=== PATIENT | male | born 1940 | race Caucasian/White ===

== ENCOUNTER → 2019-12-29 | Outpatient (CLI) | payer MEDICARE | LOC: M LABSMTC 11:15 | PROVIDERS: ATTEND Orthopaedic Surgery | DX: Z11.59 Encounter for screening for other viral diseases (principal); Z03.818 Encounter for observation for suspected exposure to other biological agents ruled out ==

== ENCOUNTER → 2024-05-24 | Outpatient (REF) | payer MEDICARE ==
[2024-05-24 18:07] LABS: APPEARANCE, URINE TURBID (CLEAR); BACTERIA, URINE AUTO 1+ (NEGATIVE); BILIRUBIN, URINE AUTO NEGATIVE (NEGATIVE); BLOOD, URINE BLOOD 3+ (NEGATIVE); COLOR, URINE AMBER (YELLOW); GLUCOSE, URINE (UA) AUTO NEGATIVE (NEGATIVE); KETONE, URINE AUTO NEGATIVE (NEGATIVE); LEUKOCYTE ESTERASE, URINE AUTO 3+ (NEGATIVE); MUCUS, URINE SMALL (NEGATIVE); NITRITE, URINE AUTO NEGATIVE (NEGATIVE); PROTEIN, URINE AUTO 2+ mg/dL (NEGATIVE); RBC, URINE AUTO TNTC /HPF (0-3); SPECIFIC GRAVITY URINE AUTO 1.006 (1.002-1.035); SQUAMOUS EPITHELIAL CELL UR AU 0 /HPF (0-6); UROBILINOGEN, URINE AUTO 0.2 mg/dL (0.0-2.0); WBC, URINE AUTO TNTC /HPF (0-3)
== END ==
LOC: M SMT 16:46
PROVIDERS: ATTEND Urology
DX: R93.89 Abnormal findings on diagnostic imaging of other specified body structures (principal)